=== PATIENT | male | born 1960 | race Hispanic/Latino ===

== ENCOUNTER 2018-12-17 23:03 | Emergency (ER) | payer MEDICAID ==
[~2018-12-17] VITALS: Ht 175.3 cm; Wt 79.4 kg
--- NOTE | ~2018-12-17 | EKG ---
[facility] [address] [place], [place] [address] Draft EKG completed, results pending confirmation PATIENT NAME: MILAGRO DE LA ROSA Electrocardiogram DATE OF : 62 PHYSICIAN: PRELIMINARY REPORT #: [id number] REPORT IS CONFIDENTIAL AND NOT TO BE RELEASED WITHOUT AUTHORIZATION
--- NOTE | ~2018-12-17 | EKG ---
[facility] [address] [facility] [place], [place] [address] Draft EKG completed, results pending confirmation PATIENT NAME: MILAGRO DE LA ROSA Electrocardiogram DATE OF : 62 PHYSICIAN: PRELIMINARY REPORT #: [id number] REPORT IS CONFIDENTIAL AND NOT TO BE RELEASED WITHOUT AUTHORIZATION
== END 2018-12-18 01:15 | disposition short-term general hospital (02) ==
LOC: ED 23:03
DX: I63.9 Cerebral infarction, unspecified (principal); G93.40 Encephalopathy, unspecified; I16.1 Hypertensive emergency; R56.9 Unspecified convulsions
CPT/HCPCS: 70450; 70496; 70498; 71045; 80053; 81001; 84484; 85025; 85610; 85730; 93005; 93010; 96365; 96375; 99291; 99292; G0480; J1953; J2060; J2405; J2997; J7060; Q3014